=== PATIENT | female | born 1995 | race Caucasian/White ===

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

== ENCOUNTER 2017-04-11 16:32 | Emergency (ER) | payer MEDICAID ==
[~2017-04-11] VITALS: Ht 167.6 cm; Wt 129.3 kg
--- OUTSIDE RECORDS SUMMARY | 2017-04-11 16:39 | External Medical Summary Rpt | CCD ---
Author Author [employer] Organization [employer] Address Unknown Phone Unavailable Purpose Continuity of Care Document - through 2016
--- OUTSIDE RECORDS SUMMARY | 2017-04-11 16:39 | External Medical Summary Rpt | CCD ---
Author Author , ROSSI DÍAZ Address Unknown Phone [email or web address] Purpose Continuity of Care Document - through 2016 Problems Code Diagnosis DOS Provider Status B34.9 VIRAL INFECTION, UNSPECIFIED N39.0 URINARY TRACT INFECTION, SITE NOT SPECIFIED R42 DIZZINESS AND GIDDINESS S30.1XXA CONTUSION OF ABDOMINAL WALL, INITIAL ENCOUNTER Z33.1 STATE, INCIDENTAL
--- OUTSIDE RECORDS SUMMARY | 2017-04-11 16:39 | External Medical Summary Rpt | CCD ---
Author Author , ROSSI DÍAZ Address Unknown Phone [email or web address] Purpose Continuity of Care Document - through 2016 Problems Code Diagnosis DOS Provider Status B34.9 VIRAL INFECTION, UNSPECIFIED N39.0 URINARY TRACT INFECTION, SITE NOT SPECIFIED R42 DIZZINESS AND GIDDINESS S30.1XXA CONTUSION OF ABDOMINAL WALL, INITIAL ENCOUNTER Z33.1 STATE, INCIDENTAL
--- OUTSIDE RECORDS SUMMARY | 2017-04-11 16:40 | External Medical Summary Rpt | CCD ---
Author Author , ROSSI DÍAZ Address Unknown Phone [email or web address] Immunization Name Date Rout CVX Reac Dose Comm Prov Is Faci e tion ent ider Refu lity Give sed n Infl 11-2 150 999 Hist [facility] No [facility] uenz 3-20 oric 1 1 a 16 al Quad Info Inj rmat ion - Sour ce Unsp ecif ied DTaP 09-0 107 999 Hist H191 No H191 , UF 9-20 oric 02 al Info rmat ion - Sour ce Unsp ecif ied Armond 08-1 10 999 Hist H191 No H191 o-IP 6-20 oric V 01 al Info rmat ion - Sour ce Unsp ecif ied MMR 08-1 3 999 Hist H191 No H191 6-20 oric 01 al Info rmat ion - Sour ce Unsp ecif ied Hib, 10-2 17 999 Hist H191 No H191 UF 9-19 oric 98 al Info rmat ion - Sour ce Unsp ecif ied MMR 10-2 3 999 Hist H191 No H191 9-19 oric 98 al Info rmat ion - Sour ce Unsp ecif ied Vari 10-2 21 999 Hist H191 No H191 cell 9-19 oric a 98 al Info rmat ion - Sour ce Unsp ecif ied DTaP 10-2 107 999 Hist H191 No H191 , UF 9-19 oric 98 al Info rmat ion - Sour ce Unsp ecif ied Hep 04-0 8 999 Hist H191 No H191 B, 7-19 oric ped/ 98 al adol Info rmat ion - Sour ce Unsp ecif ied Armond 04-0 2 999 Hist H191 No H191 o-OP 7-19 oric V 98 al Info rmat ion - Sour ce Unsp ecif ied DTP- 04-0 22 999 Hist H191 No H191 Hib 7-19 oric 98 al Info rmat ion - Sour ce Unsp ecif ied Armond 01-1 2 999 Hist H191 No H191 o-OP 5-19 oric V 98 al Info rmat ion - Sour ce Unsp ecif ied DTP- 01-1 22 999 Hist H191 No H191 Hib 5-19 oric 98 al Info rmat ion - Sour ce Unsp ecif ied DTP- 10-3 22 999 Hist H191 No H191 Hib 0-19 oric 97 al Info rmat ion - Sour ce Unsp ecif ied Armond 10-3 2 999 Hist H191 No H191 o-OP 0-19 oric V 97 al Info rmat ion - Sour ce Unsp ecif ied Hep 09-1 8 999 Hist H191 No H191 B, 0-19 oric ped/ 97 al adol Info rmat ion - Sour ce Unsp ecif ied
--- OUTSIDE RECORDS SUMMARY | 2017-04-11 16:40 | External Medical Summary Rpt | CCD ---
Author Author , ROSSI DÍAZ Address Unknown Phone [email or web address] Immunization Name Date Rout CVX Reac Dose [...]
[2017-04-11] MEDS ORDERED: AMOXICILLIN500 M2 PO (17:00)
--- NOTE | 2017-04-11 17:02 | Urgent Treatment Center Report ---
History of Present Issue Date/Time Seen by Provider 04/11/17 1657 Visit Reason Pt arrived:Ambulance Stretcher Presenting Problem:PT C/O BILATERAL EAR PAIN AND COUGH. Location if Accident: Onset of symptoms date/time:/ or onset unknown for:MEDICAL HX UNKNOWN Have you (or family members/close friends) recently traveled outside the [place]? N If Yes, where/when: Have you had exposure to infectious disease within the past month? TB? Other? Specify: Source patient, RN notes reviewed Exam Limitations no limitations Comment 22-year-old female presents for bilateral ear pain, sore throat, and nasal congestion. ALLERGIES Coded Allergies: No Known Allergies (05/20/16) Home Medications Active Scripts CEPHALEXIN (Keflex 500MG Capsule) 500 MG PO Q8H #21 CAP Prov: 05/20/16 Reported Medications LABETALOL HCL (LABETALOL 200MG) 400 MG PO BID IBUPROFEN (Motrin 600MG) 600 MG PO Q6HP PRN PAIN Docusate Sodium 200 MG PO BID History Medical History General CAD? No Angina: No RI: No Hypertension? Yes Hyperlipidemia? No CHF? No DVT? No PE? No COPD? No Asthma? No Anemia? No GERD? No Gastric ulcers? No GI Bleed? No Hernia? No Thyroid Problems? No Hypothyroidism? No CVA? No Seizures? No Diabetes? No Renal Insuffiency? No UTI? No Stones? No BPH? No GB Disease: No Nephritic Syndrome? No Asplenia? No Hepatitis? No Sickle Cell Disease? No Arthritis? No Migraines? No Cataracts? No Glaucoma? No MRSA? No HIV? No TB? No Anxiety? No Depression? No Cancer? No More? No Immunization HX DT/Tetanus Unknown Surgical Hx Previous Surgery?N Social History Smoking Hx Smoker: Current Every Day Smoker Tobacco: Yes Type Cigarettes Packs/day < 1 Pack Alcohol Alcohol: No Review of Systems All Other Systems Reviewed and Negative ENT see HPI, ear pain, nose congestion. Physical Exam Vital Signs Vital Signs Date Time Temp Pulse Resp B/P Pulse O2 O2 Flow FiO2 Ox Delivery Rate 04/11 1650 98.1 108 20 135/71 96 - WBC >12,000 or <4,000 or 10% bands? 2 or more SIRS Criteria Met? B/P:135/71 MAP:92 Creatinine >2.0? UA output<0.5ml/kg/hr for 2 hrs? Platelet count >100,000? Lactate >2.0mmol/1? INR >1.2 or PTT > than 60 sec? Evidence of Organ Dysfunction? Provider documented clinical suspician of infection? Sepsis Criteria Count: 2 Sepsis Risk: General Appearance normal appearance, WD/WN, no apparent distress Eye Exam - bilateral eye normal exam, bilateral eye PERRL, bilateral eye EOMI Ear, Nose, Throat hearing grossly normal, abnormal TM (R), nasal congestion, pharyngeal erythema Respiratory Status Yes: trachea midline, chest symmetrical, non tender chest. No: respiratory distress. Lung Sounds bilateral: normal breath sounds, lungs clear. Cardiovascular normal exam, regular rate/rhythm Neurologic alert, normal exam, oriented x 3 Medical Decision Making LABS/Meds/Orders Pt receiving controlled substance in ED? No Departure Departure Time of Disposition 165 Disposition DC Home or Self Care(routine) Clinical Impression Primary Impression: Right otitis media Qualifiers: Otitis media type: unspecified Qualified Code: H66.91 - Otitis media, unspecified, right ear Condition STABLE Referrals FRANCISCO JAVIER YOU (Family): 1 Day-Call Office Patient Instructions DI for Otitis Media (Middle Ear Infection)-Child Additional Instructions Antibiotics as ordered Tylenol Motrin as needed for pain or fever Follow-up with primary care this week If symptoms worsen or do not improve return or be seen in the ER Discharge Counseling Counseled pt/family regarding diagnosis, test results, medications/RX, home care, follow up needs Prescriptions Current Visit Scripts Amoxicillin (Amoxicillin 500MG Tab) 500 MG PO BID 10 Days at 1701
[2017-04-11 17:05] VITALS: BP 135/71
== END 2017-04-11 17:05 | disposition home or self-care (01) ==
LOC: UTC 16:32
DX: H66.91 Otitis media, unspecified, right ear (principal); F17.210 Nicotine dependence, cigarettes, uncomplicated; I10 Essential (primary) hypertension